=== PATIENT | male | born 1965 | race Caucasian/White ===

== ENCOUNTER 2016-11-30 22:32 | Inpatient (IN) | payer BC, OTHER ==
[~2016-11-30] VITALS: Ht 177.8 cm; Wt 163.0 kg
[~2016-11-30 22:32] MED LIST: LEVO.1 PO
[2016-11-30 22:35] VITALS: BP 134/61; PULSE 92; RESP 18; TEMP 103.2; O2SAT 95
[2016-11-30] MEDS ORDERED: SODIUM CHLOR 0.9% 1000 ML INJ 300 ML IV ONE (23:24)
[2016-11-30] MEDS ORDERED: SODIUM CHLOR 0.9% 1000 ML INJ 1,000 ML IV ONE ×3 (23:24)
[2016-11-30] MEDS ORDERED: ACETAMINOPHEN 325 MG TAB PO ONE (23:30)
[2016-11-30] MEDS ORDERED: PIPERACIL-TAZO 3.375 GM PREMIX 50 ML IV ONE (23:30)
[2016-11-30] MEDS ORDERED: VANCOMYCIN INJ 1,000 MG in SODIUM CHLOR 0.9% 250 ML INJ 250 ML IV ONE (23:30)
[2016-11-30] MEDS ORDERED: ONDANSETRON HCL 4 MG/2 ML VIAL IV ONE (23:30)
--- NOTE | 2016-11-30 23:55 | PD ---
HPI Chief Complaint: GI Complaint Time Seen by Provider: 23:22 Travel History International Travel<30 days: No Contact w/Intl Traveler<30days: No Traveled to known affect area: No History of Present Illness HPI The patient is a 51 year old male who presents to the [facility] emergency department with a history of beginning to feel ill on Wednesday with a cough and chest congestion. The patient reports that the cough was initially productive, however now it is dry. The patient reports he began to have fevers with generalized weakness. He went to a local [facility] on and had a flu test done that was negative, however in spite of this he was diagnosed with influenza and started on Tamiflu. The patient was also diagnosed with bronchitis and started on Augmentin. The patient reports that he continued to have fevers that are difficult to control in spite of using Tylenol every 4 hours. He reports that he's been experiencing nausea and then developed diarrhea on Wednesday. He reports that he's had approximately 5-6 episodes of diarrhea per day. He reports that the stool is brown in color. He reports that it is not controlled with Pepto-Bismol or Imodium. He denies having any vomiting. She reports that today he began to have urinary frequency and blood in his urine. He began went to the [facility] for evaluation and had a urinalysis done that did reveal blood in his urine. The patient and decided to come to the emergency department for evaluation and treatment. The patient arrives with a temperature of 104. The patient denies having any chest pain, chest pressure, or shortness of breath. He reports that when he has had diarrhea at times he does develop dizziness and diaphoresis while sitting on the toilet. The patient reports that his primary care physician is Dr. Benoit Mckinney. He last had blood work done 2 years ago. He reports that his only medical problem is a history of hypothyroid disorder. The patient denies any neck pain, abdominal pain, dysuria, or urinary urgency, or neurologic symptoms. [facility] Past Medical History Narrative Medical The patient's past medical history is significant for hypothyroid disorder. AAA: Yes Diminished Hearing: No Thyroid Disease: Yes Past Surgical History Narrative Surgical The patient denies any past surgical history. Social History Alcohol Use: No Tobacco Use: No Substance Use: No Allergies-Medications (Allergen,Severity, Reaction): Uncoded Allergies: PRESERVATIVE IN LIDOCAINE (Allergy, Severe, HIVES, 12/23/08) Reported Meds & Prescriptions Reported Meds & Active Scripts Active Reported Synthroid (Levothyroxine Sodium) 100 Mcg Tab 100 Mcg PO DAILY Review of Systems Except as stated in HPI: all other systems reviewed are Neg General / Constitutional: No: Fever Eyes: No: Visual changes HENT: Positive: Congestion, No: Headaches, Rhinorrhea, Neck Stiffness, Neck Pain Cardiovascular: No: Chest Pain or Discomfort, Dyspnea on exertion, Edema Respiratory: Positive: Cough, No: Shortness of Breath Gastrointestinal: Positive: Nausea, Diarrhea, Changes in Bowel Habits, Loss of Appetite, No: Vomiting, Abdominal Pain, Indigestion Genitourinary: Positive: Frequency, Hematuria, No: Urgency, Dysuria, Flank Pain Musculoskeletal: Positive: Myalgias, No: Pain Skin: No Rash Neurologic: Positive: Weakness (generalized weakness) Psychiatric: No: Depression Endocrine: Positive: Polyuria, Polydipsia Hematologic/Lymphatic: No: Easy Bruising Physical Exam Narrative General: The patient is a well-developed, obese male, uncomfortable appearing on my arrival to the room with a frequent dry sounding cough. Head and Neck exam: Head is normocephalic atraumatic. Eyes: EOMI, pupils are equal round and reactive to light. Nose: Midline septum with pink mucous membranes Mouth: Dentition unremarkable. Moist mucus membranes. Posterior oropharynx is not erythematous. No tonsillar hypertrophy. Uvula midline. Airway patent. Neck: No palpable lymphadenopathy. No nuchal rigidity. No thyromegaly. Cardiovascular: Sinus tachycardia in the low 100 without murmurs, gallops, or rubs. No pulse deficit to the extremities on simultaneous auscultation and palpation of his radial artery. Lungs: The patient has tachypnea with coarse breath sounds in bilateral bases. No wheezes or rhonchi. Abdomen: Soft, without tenderness to palpation in all 4 quadrants of the abdomen. No guarding, rebound, or rigidity. Normal bowel sounds are audible. No tenderness on palpation of McBurney's point. Extremities: No clubbing, cyanosis, or edema. 2+ pulses in all 4 extremities. Back: No spinous process tenderness to palpation. No costovertebral angle tenderness to palpation. Neurologic Exam: Cranial nerves 2-12 were intact on exam. Strength is 4/5 in all 4 extremities. No sensory deficits noted. Skin Exam: No rash noted. Intact skin that is warm and dry. Data Data Last Documented VS Vital Signs Date Time Temp Pulse Resp B/P Pulse Ox O2 Delivery O2 Flow Rate FiO2 11/30/16 23:30 22 11/30/16 22:35 103.2 92 134/61 95 Orders Electrocardiogram (11/30/16 23:24) Complete Blood Count With Diff (11/30/16 23:24) Comprehensive Metabolic Panel (11/30/16 23:24) Prothrombin Time / Inr (Pt) (11/30/16 23:24) Act Partial Throm Time (Ptt) (11/30/16 23:24) Lactic Acid Sepsis Protocol (11/30/16 23:24) Magnesium (Mg) (11/30/16 23:24) Lipase (11/30/16 23:24) Ckmb (Isoenzyme) Profile (11/30/16 23:24) Troponin I (11/30/16 23:24) Urinalysis - C+S If Indicated (11/30/16 23:24) Influenzae A/B Antigen (11/30/16 23:24) Blood Culture (11/30/16 23:24) Sputum Culture And Gram Stain (11/30/16 23:24) Chest, Single Ap (11/30/16 23:24) Blood Glucose (11/30/16 23:24) Ecg Monitoring (11/30/16 23:24) Iv Access Insert/Monitor (11/30/16 23:24) Oximetry (11/30/16 23:24) Oxygen Administration (11/30/16 23:24) Acetaminophen (Tylenol) (11/30/16 23:30) Sodium Chlor 0.9% 1000 Ml Inj (Ns 1000 M (11/30/16 23:24) Sodium Chlor 0.9% 1000 Ml Inj (Ns 1000 M (11/30/16 23:24) Sodium Chlor 0.9% 1000 Ml Inj (Ns 1000 M (11/30/16 23:24) Sodium Chlor 0.9% 1000 Ml Inj (Ns 1000 M (11/30/16 23:24) B-Type Natriuretic Peptide (11/30/16 23:24) C-Reactive Protein (Crp) (11/30/16 23:24) Ondansetron Inj (Zofran Inj) (11/30/16 23:30) Piperacil-Tazo 3.375 Gm Premix (Zosyn 3. (11/30/16 23:30) Vancomycin Inj (Vancomycin Inj) (11/30/16 23:30) Thyroid Stimulating Hormone (12/01/16 00:17) CKMB (11/30/16 23:40) CKMB% (11/30/16 23:40) Admit Order (Ed Use Only) (12/01/16 01:00) Labs Laboratory Tests Test 11/30/16 23:40 White Blood Count 7.3 TH/MM3 Red Blood Count 5.29 MIL/MM3 Hemoglobin 14.6 GM/DL Hematocrit 42.6 % Mean Corpuscular Volume 80.5 FL Mean Corpuscular Hemoglobin 27.6 PG Mean Corpuscular Hemoglobin 34.3 % Concent Red Cell Distribution Width 15.1 % Platelet Count 139 TH/MM3 Mean Platelet Volume 8.5 FL Neutrophils (%) (Auto) 77.3 % Lymphocytes (%) (Auto) 12.9 % Monocytes (%) (Auto) 9.5 % Eosinophils (%) (Auto) 0.0 % Basophils (%) (Auto) 0.3 % Neutrophils # (Auto) 5.6 TH/MM3 Lymphocytes # (Auto) 0.9 TH/MM3 Monocytes # (Auto) 0.7 TH/MM3 Eosinophils # (Auto) 0.0 TH/MM3 Basophils # (Auto) 0.0 TH/MM3 CBC Comment DIFF FINAL Differential Comment Prothrombin Time 11.3 SEC Prothromb Time International 1.0 RATIO Ratio Activated Partial 34.7 SEC Thromboplast Time Sodium Level 132 MEQ/L Potassium Level 4.3 MEQ/L Chloride Level 97 MEQ/L Carbon Dioxide Level 25.6 MEQ/L Anion Gap 9 MEQ/L Blood Urea Nitrogen 27 MG/DL Creatinine 1.65 MG/DL Estimat Glomerular Filtration 44 ML/MIN Rate Random Glucose 97 MG/DL Lactic Acid Level 1.2 mmol/L Calcium Level 8.1 MG/DL Magnesium Level 1.8 MG/DL Total Bilirubin 0.4 MG/DL Aspartate Amino Transf 136 U/L (AST/SGOT) Alanine Aminotransferase 55 U/L (ALT/SGPT) Alkaline Phosphatase 44 U/L Total Creatine Kinase 3776 U/L Creatine Kinase MB 2.6 NG/ML Creatine Kinase MB % 0.1 % Troponin I 0.08 NG/ML C-Reactive Protein 15.80 MG/DL B-Type Natriuretic Peptide 20 PG/ML Total Protein 7.4 GM/DL Albumin 3.1 GM/DL Lipase 319 U/L MDM Medical Decision Making Medical Screen Exam Complete: Yes Emergency Medical Condition: Yes Medical Record Reviewed: Yes Interpretation(s) Last Impressions Chest X-Ray 11/30/16 8004 Signed Impressions: Service Date/Time: Wednesday, November 30, 2016 23:39 - CONCLUSION: Basilar atelectasis or mild air space disease. Mynor Coleman MD Differential Diagnosis Sepsis, versus pyelonephritis, versus pneumonia, versus influenza, versus prostatitis, versus C. difficile colitis, versus gastroenteritis, versus dehydration, versus electrolyte abnormality, versus DKA Narrative Course During the course of the patients emergency department visit, the patients history, examination, and differential diagnosis were reviewed with the patient. The patient had IV access obtained and blood work sent for analysis. The patient was placed on a seismometer operator with oximetry and blood pressure monitoring. An ECG was ordered. The patient had an EKG done that reveals a sinus rhythm with frequent supraventricular premature contractions, heart rate of 96, QRS 102 ms, QTC 372 ms, no acute ST segment elevation is noted, T waves are inverted in V1. The patient was provided normal saline at 30 mL per KG IV fluid bolus due to meeting Sirs criteria with an infectious source that is suspected to be respiratory. The patient was started on vancomycin 1 g IV, Zosyn 3.37 g IV. The patient was given Zofran 4 mg IV, Tylenol 650 by mouth times one. An Accu- Chek was ordered. The patients laboratory studies were reviewed and remarkable for a white count of 7.3, hemoglobin 14.6, platelets 139 with neutrophils 77.3, monocytes 9.5. CMP is remarkable for sodium of 132, chloride 97, BUN 27, creatinine 1.65, GFR 44, lactic acid 1.2, calcium 8.1, magnesium 1.8, AST 136, alkaline phosphatase 44, CPK 3776, troponin I 0.08, C-reactive protein 15.80, CK-MB percent is normal , BNP is 20, lipase 319, PT PTT are unremarkable. Radiology studies were reviewed and remarkable for bilateral airspace disease at the bases. The patients results were discussed with the patient, including the plan of care. I explained that further testing and/ or monitoring is indicated based on the patients history, examination, and/ or laboratory findings. Therefore, I recommended admission for additional evaluation. The patient expressed understanding and was agreeable with this plan. The patient was admitted to the hospital in guarded condition and sent to a bed under the care of the [facility]. Critical Care Narrative Aggregate critical care time was 35 minutes. Time to perform other separately billable procedures was not included in the critical care time. My time did not include minutes spent treating any other patients simultaneously or on activities that did not directly contribute to the patient's treatment. The services I provided to this patient were to treat and/or prevent clinically significant deterioration that could result in: Respiratory failure, versus cardiovascular collapse I provided critical care services requiring my management, as noted below: Chart data review, documentation time, medication orders and management, vital sign assessments/reviewing monitor data, ordering and reviewing lab tests, ordering and interpreting/reviewing x-rays and diagnostic studies, care of the patient and discussion of the patient with the admitting physicians. Sepsis Criteria SIRS Criteria (2 or more): Temp > 100.9 or < 96.8, Heart rate over 90, RR > 20 or PaCO2 < 32 Sepsis Criteria (SIRS+source): Infect source susp/known Criteria Outcome: Meets SIRS criteria, Meets sepsis criteria Physician Communication Physician Communication The patient's case will be discussed with the [facility] regarding admission. The patient's case was discussed with Julian Quintana who did agree to admit the patient for further evaluation and treatment at this time. Diagnosis Primary Impression: Pneumonia Qualified Code: J18.9 - Pneumonia of both lower lobes due to infectious organism Additional Impressions: Rhabdomyolysis Qualified Code: M62.82 - Non-traumatic rhabdomyolysis Acute renal insufficiency Sepsis Qualified Code: A41.9 - Sepsis, due to unspecified organism Admitting Information Admitting Physician Requests: Admit Roseann Espinoza MD Nov 30, 2016 23:55
[2016-11-30 23:59] LABS: AUTOMATED NEUTROPHIL # 5.6 TH/MM3 (1.8-7.7); BASOPHIL % 0.3 % (0.0-2.0); HEMATOCRIT 42.6 % (39.0-51.0); HEMO FLAGS DIFF FINAL; LYMPH % 12.9 % (9.0-44.0); LYMPHOCYTE # 0.9 TH/MM3 (1.0-4.8); MEAN CELL VOLUME 80.5 FL (80.0-100.0); MEAN CORPUSCULAR HEMOGLOBIN 27.6 PG (27.0-34.0); MEAN CORPUSCULAR HGB CONC 34.3 % (32.0-36.0); MONO % 9.5 % (0.0-8.0); NEUT % 77.3 % (16.0-70.0); PLATELET COUNT 139 TH/MM3 (150-450); RED BLOOD COUNT 5.29 MIL/MM3 (4.50-5.90); RED CELL DISTRIBUTION WIDTH 15.1 % (11.6-17.2); WHITE BLOOD COUNT 7.3 TH/MM3 (4.0-11.0)
[2016-12-01] VITALS (11 sets, daily range): BP systolic 119–143; BP diastolic 63–72; PULSE 88–98; RESP 17–21; TEMP 100.6–103.3; O2SAT 94–98
--- NOTE | 2016-12-01 00:01 | RADRPT ---
EXAM DATE/TIME: 11/30/2016 23:39 [facility] COMPARISON: No previous studies available for comparison. INDICATIONS : Shortness of breath. MEDICAL HISTORY : None. SURGICAL HISTORY : None. ENCOUNTER: Initial ACUITY: 1 day PAIN SCORE: 0/10 LOCATION: Bilateral chest FINDINGS: There is cardiomegaly and patchy air space disease or atelectasis at the bases. No effusions. Osseous structures demonstrate degenerative changes of the spine. CONCLUSION: Basilar atelectasis or mild air space disease. Mynor Coleman MD on November 30, 2016 at 23:59 Board Certified Radiologist. This report was verified electronically.
[2016-12-01 00:06] LABS: APTT (PATIENT) 34.7 SEC (24.3-30.1); PROTHROMBIN TIME - PATIENT 11.3 SEC (9.8-11.6)
[2016-12-01 00:10] LABS: ANION GAP 9 MEQ/L (5-15); AST (GOT) 136 U/L (15-37); BICARBONATE 25.6 MEQ/L (21.0-32.0); BLOOD UREA NITROGEN 27 MG/DL (7-18); CHLORIDE 97 MEQ/L (98-107); GLOMERULAR FILTRATION RATE 44 ML/MIN (>89); MAGNESIUM 1.8 MG/DL (1.5-2.5); POTASSIUM 4.3 MEQ/L (3.5-5.1); SODIUM (NA) 132 MEQ/L (136-145)
[2016-12-01 00:26] LABS: ALKALINE PHOSPHATASE 44 U/L (45-117); ALT (GPT) 55 U/L (12-78); CREATINE KINASE 3776 U/L (39-308); TOTAL BILIRUBIN ADULT 0.4 MG/DL (0.2-1.0)
[2016-12-01 00:39] LABS: CKMB 2.6 NG/ML (0.5-3.6)
[2016-12-01] MEDS ORDERED: LEVO.1 PO (01:24)
[2016-12-01] MEDS ORDERED: SODIUM CHLORIDE 0.9% FLUSH 5 ML FLUSH IV FLUSH PRN (01:45)
[2016-12-01] MEDS ORDERED: RESP: ALBUTEROL 2.5 MG/IPRATROPIUM 0.5 MG NEB (PRN) INH (01:45)
[2016-12-01] MEDS ORDERED: ONDANSETRON HCL 4 MG/2 ML VIAL IV PRN (01:45)
[2016-12-01] MEDS: SODIUM CHLOR 0.9% 1000 ML INJ 1,000 ML IV SCH ×3 (03:06→12:07)
[2016-12-01] MEDS: HEPARIN SODIUM - SQ 10,000 UNITS/ML VIAL SQ SCH ×2 (03:06→13:38)
[2016-12-01] MEDS: cefTRIAXone INJ 1,000 MG in SODIUM CHLORIDE 0.9% INJ 100 ML IV SCH (03:07)
[2016-12-01 03:35] LABS: BACTERIA, URINE RARE /hpf; BLOOD, URINE MOD (NEG); GLUCOSE,URINE NEG (NEG); GRANULAR CAST, URINE 4 /lpf; HYALINE CAST, URINE 8 /lpf (RARE); KETONE, URINE 10 mg/dL (NEG); MUCUS URINE FEW /lpf (OCC); NITRITE,URINE NEG (NEG); PH, URINE 5.5 (5.0-8.5); SQUAMOUS EPITHELIAL CELL URINE 1 /hpf (0-5); URINE COLOR YELLOW (YELLW/STRAW)
[2016-12-01 03:42] LABS: COMMENT (UR) CATH-CULTURE IND; CULTURE IF INDICATED CATH CULTURE IND
[2016-12-01] MEDS: AZITHROMYCIN INJ 500 MG in SODIUM CHLOR 0.9% 250 ML INJ 250 ML IV SCH (03:57)
--- NOTE | 2016-12-01 05:54 | MH ---
cc: VALENTIN MARIN DATE OF ADMISSION: 12/01/2016 PRIMARY CARE PHYSICIAN Beniot Mckinney MD CHIEF COMPLAINT Cough and fever. HISTORY OF PRESENT ILLNESS This is a pleasant 51-year-old male who has been sick since last Wednesday. The patient states he developed a cough and a fever. He notes going a central care. He was started on Tamiflu, though his flu test was reported to be negative. He was also started on Augmentin; this was on . By Wednesday he developed diarrhea having 5-6 bowel movement per day. He started taking Imodium and some Pepto Bismol. The stool turned a little bit dark with the Pepto Bismol. He was still having the diarrhea. His cough was initially moist and productive; it has become more of a dry cough. He has been using [id number] Mucinex DX for this and he has been taking Tylenol for the fever. He still continues to have fever. He is denying chest pain or shortness of breath. He is denying abdominal pain. He has not seen blood in his stool. He has finished his Tamiflu. He is up-to-date on his Augmentin as well. His appetite has become poor as he is trying to avoid the diarrhea. Denies any other specific recent changes. MEDICATIONS ON ADMISSION Synthroid 0.1 daily. ALLERGIES LIDOCAINE. PAST MEDICAL HISTORY Hypothyroidism. Obesity. PAST SURGICAL HISTORY None. SOCIAL HISTORY . Tobacco none. Alcohol use none. Substance abuse none. He works in a warehouse. FAMILY HISTORY Mother and father alive and well. REVIEW OF SYSTEMS A 10 point review of systems gone over with the patient. Prior to five days ago, he has been in his normal state of health. He does snore. He has never been tested for sleep apnea, though his indicates he does not stop breathing. On review of systems otherwise no pertinent findings. PHYSICAL EXAMINATION Vital Sign: The patient has a T-max of 103.2, pulse 92, respirations 18, blood pressure 134/61. O2 sat is 95% on room air. General: This was a 51-year-old male resting comfortably in bed. He is in no acute distress. HEENT: Mucous membranes are moist. There is no jaundice. Neck: Supple. Cardiovascular System: Regular rate and rhythm. Respiratory System: Coarse bibasilar breath sounds. Gastrointestinal System: Morbidly obese. No point tenderness, guarding or rebound. System: No suprapubic tenderness, no CVA tenderness. Musculoskeletal System: No edema. Bartolome's negative. Distal pulses are palpable. Neurological Exam: The patient is awake, alert, oriented x 4. Speech is clear and fluent. He is moving all extremities freely. INVESTIGATIONS Chest x-ray shows bibasilar atelectasis, some mild airspace disease. CBC shows a platelet count of 139, otherwise normal. Sodium is 132, potassium is 4.3, BUN is 27, creatinine is 1.65, calcium is 8.1, magnesium is 1.8, AST is 136, ALT is 55, alkaline phosphatase is 44. CPK is 3776. CKMB was normal. Troponin is 0.08. C-reactive protein 15.8. BUN is 3.1. Lipase is 319. INR is 1. IMPRESSION 1. Bibasilar pneumonia. 2. Sepsis on admission. 3. Thrombocytopenia. 4. Acute kidney injury. 5. Hyponatremia. 6. Rhabdomyolysis. 7. Elevated troponin. 8. Elevated liver enzymes. 9. Morbid obesity. DISCUSSION The patient is admitted to Dr. Marin's service. The patient meets inpatient criteria due to the severity of his rhabdomyolysis and pneumonia with failed outpatient therapy without which hospitalization he would be at high risk in going into septic shock, multisystem organ failure, etc. During his hospital stay he will be monitored on telemetry. He will be started on DVT prophylaxis. He will be started on low-dose aspirin. We will repeat a troponin and EKG in the morning. He has received 3 liters of fluid in the emergency room. We will continue IV fluid. We will follow up a CPK in the morning as well. IV antibiotics will be given. Electrolytes will be monitored and replaced as needed. It should also be noted that his lactic acid was 1.2. He is having diarrhea; this is likely from the Augmentin. We will check him for C-diff and if positive we will proceed with the standard treatment. If negative, we will proceed with antidiarrheals as needed. We will also provide the patient with nebulizers as needed, cough medicine, Tylenol, Zofran and incentive spirometry. Estimated length of stay is 3-4 days. Anticipated discharge is home. 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
[2016-12-01] MEDS: ACETAMINOPHEN 325 MG TAB PO PRN ×4 (07:30→20:50)
[2016-12-01 08:27] LABS: BICARBONATE 18.8 MEQ/L (21.0-32.0); MAGNESIUM 1.7 MG/DL (1.5-2.5); POTASSIUM 3.9 MEQ/L (3.5-5.1)
[2016-12-01 08:43] LABS: CALCIUM-PROTEIN CORRECTED 7.6 MG/DL (8.5-10.1)
[2016-12-01 09:04] LABS: CKMB 6.3 NG/ML (0.5-3.6)
[2016-12-01] MEDS: LEVOTHYROXINE SODIUM 100 MCG TAB PO SCH (09:47)
[2016-12-01] MEDS: SODIUM CHLORIDE 0.9% FLUSH 5 ML FLUSH IV FLUSH SCH ×2 (09:47→20:26)
[2016-12-01] MEDS: ASPIRIN EC 81 MG TABEC PO SCH (09:47)
[2016-12-01 12:01] LABS: C. DIFF EPI 027 PRESUMPTIVE NEGATIVE (NEGATIVE); C. DIFF TOXIN PCR NEGATIVE (NEGATIVE)
--- NOTE | 2016-12-01 17:10 | EKG ---
Date Performed: 12/01/2016 Time Performed: 00:09:20 PTAGE: 51 years EKG: Sinus rhythm WITH FREQUENT SUPRAVENTRICULAR PREMATURE COMPLEXES INDETERMINATE AXIS ABNORMAL RHYTHM ECG NO PREVIOUS TRACING DOCTOR: Agapito Tolbert Interpretating Date/Time 12/01/2016 17:05:35
[2016-12-01] MEDS: guaiFENesin/DEXTROMETHORPHAN 200 MG/20 MG/10 ML CUP PO PRN (20:53)
[2016-12-01] MEDS: LOPERAMIDE HCL 2 MG CAP PO PRN (21:45)
[2016-12-02] VITALS (10 sets, daily range): BP systolic 100–140; BP diastolic 50–74; PULSE 64–96; RESP 16–22; TEMP 98.2–102.9; O2SAT 89–96
[2016-12-02] MEDS: guaiFENesin/DEXTROMETHORPHAN 200 MG/20 MG/10 ML CUP PO PRN ×5 (00:46→22:17)
[2016-12-02] MEDS: SODIUM CHLOR 0.9% 1000 ML INJ 1,000 ML IV SCH ×3 (00:46→17:32)
[2016-12-02] MEDS: ACETAMINOPHEN 325 MG TAB PO PRN ×5 (00:46→16:47)
[2016-12-02] MEDS: cefTRIAXone INJ 1,000 MG in SODIUM CHLORIDE 0.9% INJ 100 ML IV SCH (02:01)
[2016-12-02] MEDS: HEPARIN SODIUM - SQ 10,000 UNITS/ML VIAL SQ SCH ×2 (02:01→13:13)
[2016-12-02] MEDS: AZITHROMYCIN INJ 500 MG in SODIUM CHLOR 0.9% 250 ML INJ 250 ML IV SCH (03:12)
[2016-12-02] MEDS: LOPERAMIDE HCL 2 MG CAP PO PRN (05:10)
[2016-12-02] MEDS: LEVOTHYROXINE SODIUM 100 MCG TAB PO SCH (05:12)
[2016-12-02] MEDS: ASPIRIN EC 81 MG TABEC PO SCH (08:09)
[2016-12-02] MEDS: SODIUM CHLORIDE 0.9% FLUSH 5 ML FLUSH IV FLUSH SCH ×2 (08:09→21:00)
[2016-12-02] MEDS ORDERED: IBUPROFEN 800 MG TAB PO PRN ×2 (10:15→18:00)
--- NOTE | 2016-12-02 10:52 | HHI.PR ---
Subjective Remarks Patient is feeling tired Still having cough Now urinalysis just dark yellow. No more blood. No other associated symptoms No abdominal pain No diarrhea No chest pain Review of system for 12 point system otherwise unremarkable Objective Objective Results - Vital Signs Date Time Temp Pulse Resp B/P Pulse Ox O2 Delivery O2 Flow Rate FiO2 12/02/16 08:00 102.2 92 20 106/62 95 12/02/16 04:00 102.6 96 18 119/61 94 12/02/16 00:00 102.9 93 20 140/74 94 12/01/16 20:00 102.7 96 20 119/67 94 12/01/16 19:59 97 12/01/16 16:00 103.3 91 17 143/70 95 12/01/16 13:32 102.0 12/01/16 11:58 101.9 88 18 123/63 97 Room Air I/O 12/01/16 12/01/16 12/01/16 12/02/16 12/02/16 12/02/16 07:00 15:00 23:00 07:00 15:00 23:00 Intake Total 16 ml 350 ml 631 ml 1299 ml 120 ml Output Total 300 ml Balance 16 ml 350 ml 331 ml 1299 ml 120 ml Intake Oral 16 ml 350 ml 240 ml 240 ml 120 ml IV Total 391 ml 1059 ml Output Urine Total 300 ml # Voids 1 2 # Bowel Movements 1 0 0 Result Diagram: 11/30/16 2340 12/01/16 0749 Other Results Date/Time Procedure Status Source Growth 12/01/16 02:55 Urine Culture Received Urine Catheterized Urine Pending 12/01/16 01:55 Gram Stain - Final Resulted Sputum Expectorated Sputum 12/01/16 01:55 Sputum Culture Resulted Sputum Expectorated Sputum Pending 11/30/16 23:40 Aerobic Blood Culture - Preliminary Resulted Blood Peripheral NO GROWTH IN 1 DAY 11/30/16 23:40 Anaerobic Blood Culture - Preliminary Resulted Blood Peripheral NO GROWTH IN 1 DAY 11/30/16 09:30 Influenza Types A,B Antigen (MARIIA) - Final Complete Nasal Aspirate NEGATIVE FOR FLU A AND B ANTIGEN.... Physical Exam Physical Exam Vital Sign: Reviewed General: This was a 51-year-old male resting comfortably in bed. He is in no acute distress. HEENT: Mucous membranes are moist. There is no jaundice. Neck: Supple. No lymphadenopathy no increased JVD Cardiovascular System: Regular rate and rhythm. Respiratory System: Coarse bibasilar breath sounds. With occasional rhonchi. Gastrointestinal System: Morbidly obese. No point tenderness, guarding or rebound. System: No suprapubic tenderness, no CVA tenderness. Musculoskeletal System: No edema. Bartolome's negative. Distal pulses are palpable. Neurological Exam: The patient is awake, alert, oriented x 4. Speech is clear and fluent. He is moving all extremities freely. A/P Assessment and Plan 1. Bibasilar pneumonia. 2. Sepsis on admission. 3. Thrombocytopenia. 4. Acute kidney injury. 5. Hyponatremia. 6. Rhabdomyolysis. 7. Elevated troponin. 8. Elevated liver enzymes. 9. Morbid obesity. DISCUSSION monitored on telemetry. Will start cefepime and continue Zithromax. DC Rocephin ID consult Motrin for fever and pain and continue Tylenol Continue cooling blanket on as-needed basis Continue IV fluids Monitor labs today's labs pending Continue heparin for DVT prophylaxis Will add Protonix for GI prophylaxis He will be started Slight increase troponin no chest pain or associated symptoms likely secondary to pneumonia and sepsis. C. difficile negative continue Imodium on when necessary basis It should also be noted that his lactic acid was 1.2. He is having diarrhea; Zofran when necessary basis for nausea and vomiting incentive spirometry encouraged Discussed with RN Discussed with patient and at bedside in detail Condition guarded Marybeth Marin MD Dec 02, 2016 10:52
[2016-12-02] MEDS: CEFEPIME INJ 2,000 MG in SODIUM CHLORIDE 0.9% INJ 100 ML IV SCH ×2 (11:59→22:18)
[2016-12-02 12:34] LABS: HEMATOCRIT 35.4 % (39.0-51.0); MEAN CELL VOLUME 81.7 FL (80.0-100.0); MEAN CORPUSCULAR HEMOGLOBIN 27.6 PG (27.0-34.0); MEAN CORPUSCULAR HGB CONC 33.7 % (32.0-36.0); PLATELET COUNT 152 TH/MM3 (150-450); RED BLOOD COUNT 4.33 MIL/MM3 (4.50-5.90); RED CELL DISTRIBUTION WIDTH 15.2 % (11.6-17.2); REVIEW FLAG FINAL
[2016-12-02 13:52] LABS: BICARBONATE 22.7 MEQ/L (21.0-32.0); MAGNESIUM 1.8 MG/DL (1.5-2.5); POTASSIUM 3.7 MEQ/L (3.5-5.1)
--- NOTE | 2016-12-02 16:07 | PD.CONS ---
History of Present Illness Service Infectious disease Consult Requested By Dr Roge Marin Reason for Consult Evaluate patient with fever Primary Care Physician Lori Mckinney MD Diagnoses: History of Present Illness Patient seen and examined. Records reviewed. Patient is a 51-year-old male, presented to the hospital for further evaluation of persistent fever, cough. His problems started about 6 days prior to admission when he started having flulike symptoms. He described this as fever, chills, body aches, and dry cough. He went to an urgent care center the following day, and he was diagnosed to have the flu, and bronchitis. He was given Tamiflu, and Augmentin, as well as cough medication. Symptoms continued, and he was coughing quite a bit and not bringing up any phlegm. He started having some discomfort in his right shoulder and abdomen due to the persistent coughing. He continued to have the fever and chills. About 2 days prior to admission he started having diarrhea. On the day of admission they went back to the urgent care center, and from there the patient was advised to go to the hospital for further evaluation and treatment. One of the child has had respiratory symptoms but has improved. No recent travel. No exposure to any other sick person in his job. No birds in the house. Since admission patient has had fevers up to 103. His WBC is normal. Chest x-ray has some basilar infiltrates. Urinalysis unremarkable. Blood cultures are negative. Influenza testing is negative. Of note is that patient has had elevated CPK. Infectious disease consultation has been requested to evaluate the patient. Review of Systems Constitutional: COMPLAINS OF: Diaphoretic episodes, Fever, Chills, Change in appetite Eyes: DENIES: Eye pain Ears, nose, mouth, throat: COMPLAINS OF: Nasal discharge, DENIES: Throat pain , Hoarseness, Ear Pain, Running Nose, Sinus Pain, Odynophagia Respiratory: COMPLAINS OF: Cough, DENIES: Sputum production, Shortness of breath Cardiovascular: COMPLAINS OF: Chest pain, DENIES: Palpitations, Syncope Gastrointestinal: COMPLAINS OF: Abdominal pain, Diarrhea, DENIES: Nausea, Vomiting Genitourinary: DENIES: Urgency, Dysuria, Nocturia Musculoskeletal: COMPLAINS OF: Joint pain, Muscle aches, DENIES: Joint Swelling Integumentary: DENIES: Rash Immunologic/allergic: DENIES: Urticaria Neurologic: DENIES: Headache Psychiatric: DENIES: Anxiety, Confusion Past Family Social History Allergies: Uncoded Allergies: PRESERVATIVE IN LIDOCAINE (Allergy, Severe, HIVES, 12/23/08) Past Medical History Hypothyroidism Obesity Past Surgical History None Active Ordered Medications Tylenol Albuterol Aspirin Azithromycin Cefepime Robitussin-DM Heparin Ibuprofen Synthroid Imodium Zofran Social History Works in a warehouse Denies smoking Denies alcohol abuse Denies drug use Physical Exam Vital Signs Vital Signs Date Time Temp Pulse Resp B/P Pulse Ox O2 Delivery O2 Flow Rate FiO2 12/02/16 13:47 89 21 12/02/16 12:00 99.7 77 22 107/61 92 12/02/16 10:14 18 12/02/16 08:00 102.2 92 20 106/62 95 12/02/16 04:00 102.6 96 18 119/61 94 12/02/16 00:00 102.9 93 20 140/74 94 12/01/16 20:00 102.7 96 20 119/67 94 12/01/16 19:59 97 Physical Exam GENERAL: This is an obese, well-developed male, awake and alert, looks dyspneic when he is talking, although she denies shortness of breath. SKIN: Cool and moist. No generalized rash or ecchymosis. HEAD: Atraumatic. Normocephalic. No temporal or scalp tenderness. EYES: [place] conjunctivae, no petechia or hemorrhage. Pupils equal round and reactive. Extraocular motions intact. No scleral icterus. No injection or drainage. ENT: Nose without bleeding, or purulent drainage. Moist oral mucosa, no thrush noted. Throat without erythema, or exudate. Uvula midline. Airway patent. NECK: Trachea midline. No JVD or lymphadenopathy. Supple, nontender, no meningeal signs. CARDIOVASCULAR: Regular rate and rhythm without murmurs, gallops, or rubs. Soft heart sounds. RESPIRATORY: Clear to auscultation. Breath sounds equal bilaterally. No wheezes , rales, or rhonchi. Decreased breath sounds at the bases. GASTROINTESTINAL: Abdomen soft, obese, non-tender, nondistended. Bowel sounds are present in normoactive. Limited exam for presence of organomegaly due to the size of his abdomen. No guarding. MUSCULOSKELETAL: Extremities without clubbing, cyanosis, or edema. No joint effusion, or edema noted. No calf tenderness. IV sites look okay with no evidence of infection NEUROLOGICAL: Awake and alert. Cranial nerves II through XII intact. Motor and sensory grossly within normal limits. Five out of 5 muscle strength in all muscle groups. Normal speech. PSYCH: Calm and cooperative LINE: PIV with no evidence of infection Laboratory Laboratory Tests Test 12/02/16 12:20 White Blood Count 11.0 Red Blood Count 4.33 Hemoglobin 11.9 Hematocrit 35.4 Mean Corpuscular Volume 81.7 Mean Corpuscular Hemoglobin 27.6 Mean Corpuscular Hemoglobin 33.7 Concent Red Cell Distribution Width 15.2 Platelet Count 152 Mean Platelet Volume 7.7 Sodium Level 137 Potassium Level 3.7 Chloride Level 105 Carbon Dioxide Level 22.7 Anion Gap 9 Blood Urea Nitrogen 12 Creatinine 1.14 Estimat Glomerular Filtration 67 Rate Random Glucose 114 Calcium Level 7.3 Magnesium Level 1.8 Total Creatine Kinase 5086 Troponin I 0.12 Date/Time Procedure Status Source Growth 12/01/16 02:55 Urine Culture - Preliminary Resulted Urine Catheterized Urine NO GROWTH IN 24 HOURS. 12/01/16 01:55 Gram Stain - Final Resulted Sputum Expectorated Sputum 12/01/16 01:55 Sputum Culture - Preliminary Resulted Sputum Expectorated Sputum HEAVY GROWTH NORMAL RESPIRATORY KRISTIAN... 11/30/16 23:40 Aerobic Blood Culture - Preliminary Resulted Blood Peripheral NO GROWTH IN 2 DAYS 11/30/16 23:40 Anaerobic Blood Culture - Preliminary Resulted Blood Peripheral NO GROWTH IN 2 DAYS 11/30/16 09:30 Influenza Types A,B Antigen (MARIIA) - Final Complete Nasal Aspirate NEGATIVE FOR FLU A AND B ANTIGEN.... Result Diagram: 12/02/16 1220 12/02/16 1220 Imaging RADIOLOGY STUDIES/FILMS REVIEWED Chest X-Ray 11/30/16 8934 Signed Impressions: Service Date/Time: Wednesday, November 30, 2016 23:39 - CONCLUSION: Basilar atelectasis or mild air space disease. Mynor Coleman MD Assessment and Plan Assessment and Plan IMPRESSION Sepsis on admission due to pulmonary source Likely with pneumonia, ?baterial, ?atypical or viral Elevated CPK, ?due to cause of his PNA, viral Obesity, high risk for KERRY Looks dyspneic but denies SOB RECOMMENDATION Repeat BC with next fever Urine for legionella and pneumo Ag ESR CRP CT chest to evaluate cough and pain R shoulder Atypical serologies Resp viral panel Continue Zithromax and Cefepime Add Levaquin Follow C/S Monitor temps Monitor progress I will determine course of Abx depending on work-up and clinical course I will follow along with you Thank you for this consultation Discussed Condition With Explained plan to patient and Evon Reno MD Dec 02, 2016 16:07
[2016-12-02] MEDS: LEVOFLOXACIN 750 MG TAB PO SCH (16:45)
[2016-12-02 17:00] LABS: CALCIUM-PROTEIN CORRECTED 7.8 MG/DL (8.5-10.1); CKMB 8.2 NG/ML (0.5-3.6)
[2016-12-02] MEDS ORDERED: IOHEXOL 350 MG/ML 10 ML VIAL (for RAD DIAG) IV ONE (21:23)
--- NOTE | 2016-12-02 21:41 | RADRPT ---
EXAM DATE/TIME: 12/02/2016 21:11 [facility] COMPARISON: No previous studies available for comparison. INDICATIONS : Cough and fever. IV CONTRAST: 67 cc Omnipaque 350 (iohexol) IV RADIATION DOSE: 15.44 CTDIvol (mGy) MEDICAL HISTORY : Aneurysm, abdominal. SURGICAL HISTORY : None. ENCOUNTER: Initial ACUITY: 1 day PAIN SCALE: 4/10 LOCATION: chest TECHNIQUE: Volumetric scanning of the chest was performed. Using automated exposure control and adjustment of t he mA and/or kV according to patient size, radiation dose was kept as low as reasonably achievable to obtain optimal diagnostic quality images. FINDINGS: There is dense consolidation in the right upper lobe and right middle lobe and some patchy airspace d isease in the right lower lobe characteristic of bronchopneumonia. There is a small right-sided parap neumonic effusion with right basilar atelectasis. The left lung is clear. Several borderline enlarged mediastinal lymph nodes are present. No pericardial effusion. No acute findings in the upper abdomen . No acute bony abnormalities. CONCLUSION: 1. Dense consolidation in the right upper lobe and right middle lobe with patchy airspace disease at the right lung base and small right effusion. Findings are most characteristic of bronchopneumonia wi th parapneumonic effusion. Omar Ramesh MD on December 02, 2016 at 21:37 Board Certified Radiologist. This report was verified electronically.
[2016-12-03] MEDS ORDERED: ACETAMINOPHEN/HYDROcodone 325 MG/7.5 MG TAB PO ONE (01:30)
[2016-12-03] MEDS: HEPARIN SODIUM - SQ 10,000 UNITS/ML VIAL SQ SCH ×2 (01:58→13:16)
[2016-12-03] MEDS: SODIUM CHLOR 0.9% 1000 ML INJ 1,000 ML IV SCH ×2 (01:59→08:23)
[2016-12-03] MEDS: AZITHROMYCIN INJ 500 MG in SODIUM CHLOR 0.9% 250 ML INJ 250 ML IV SCH (03:30)
[2016-12-03 04:56] LABS: HEMATOCRIT 36.5 % (39.0-51.0); MEAN CELL VOLUME 82.3 FL (80.0-100.0); MEAN CORPUSCULAR HEMOGLOBIN 27.1 PG (27.0-34.0); MEAN CORPUSCULAR HGB CONC 32.9 % (32.0-36.0); PLATELET COUNT 181 TH/MM3 (150-450); RED BLOOD COUNT 4.43 MIL/MM3 (4.50-5.90); RED CELL DISTRIBUTION WIDTH 15.2 % (11.6-17.2); REVIEW FLAG FINAL; WHITE BLOOD COUNT 8.4 TH/MM3 (4.0-11.0)
[2016-12-03 05:17] LABS: POTASSIUM 3.7 MEQ/L (3.5-5.1)
[2016-12-03] MEDS: LEVOTHYROXINE SODIUM 100 MCG TAB PO SCH (05:26)
[2016-12-03] MEDS: CEFEPIME INJ 2,000 MG in SODIUM CHLORIDE 0.9% INJ 100 ML IV SCH ×3 (05:26→23:21)
[2016-12-03 05:45] LABS: CKMB 10.7 NG/ML (0.5-3.6)
[2016-12-03 08:00] VITALS: BP 129/79; PULSE 77; RESP 24; TEMP 97.6; O2SAT 93
[2016-12-03] MEDS: SODIUM CHLORIDE 0.9% FLUSH 5 ML FLUSH IV FLUSH SCH ×2 (08:23→23:20)
[2016-12-03] MEDS: ASPIRIN EC 81 MG TABEC PO SCH (08:23)
--- NOTE | 2016-12-03 09:17 | RADRPT ---
EXAM DATE/TIME: 12/03/2016 08:04 [facility] COMPARISON: CT THORAX W CONTRAST, December 02, 2016, 21:11. CHEST SINGLE AP, November 30, 2016, 23:39. INDICATIONS : Short of breath, follow up right pneumonia. MEDICAL HISTORY : None. SURGICAL HISTORY : None. ENCOUNTER: Initial ACUITY: 1 week PAIN SCORE: 0/10 LOCATION: Bilateral chest FINDINGS: PA and lateral views of the chest were obtained and again demonstrate consolidative infiltrate in the right lung base. This is increased from the prior chest plain film examination this does not appear slightly changed from the chest CT. The left lung is clear. The study is Midinspiratory chronic lung vasculature. The heart size is at the upper limits normal. There is blunting of the right costophreni c angle consistent with the known small effusion. CONCLUSION: 1. Consolidative infiltrate in the right lung base consistent with the known pneumonia. 2. Small right effusion. Topher Aponte MD on December 03, 2016 at 9:14 Board Certified Radiologist. This report was verified electronically.
--- NOTE | 2016-12-03 10:44 | HHI.PR ---
Subjective Remarks Patient is feeling better than yesterday Sitting on bed Still having cough dry Now urinalysis just dark yellow. No more blood. No other associated symptoms No diarrhea No chest pain Review of system for 12 point system otherwise unremarkable Objective Objective Results - Vital Signs Date Time Temp Pulse Resp B/P Pulse Ox O2 Delivery O2 Flow Rate FiO2 12/03/16 08:00 97.6 77 24 129/79 93 12/03/16 02:59 20 12/02/16 23:58 99.0 76 20 100/50 96 12/02/16 20:42 77 12/02/16 20:00 98.6 64 20 118/65 95 12/02/16 18:50 Nasal Cannula 2.00 12/02/16 16:00 98.2 77 16 118/67 95 12/02/16 15:00 77 12/02/16 14:15 18 12/02/16 13:47 89 21 12/02/16 12:00 99.7 77 22 107/61 92 I/O 12/02/16 12/02/16 12/02/16 12/03/16 12/03/16 12/03/16 07:00 15:00 23:00 07:00 15:00 23:00 Intake Total 1299 ml 2044 ml 979 ml 1473 ml Output Total 800 ml Balance 1299 ml 1244 ml 979 ml 1473 ml Intake Oral 240 ml 740 ml 360 ml 360 ml IV Total 1059 ml 1304 ml 619 ml 1113 ml Output Urine Total 800 ml # Voids 2 2 2 # Bowel Movements 0 0 0 0 Result Diagram: 12/03/16 0435 12/03/16 0435 Other Results Laboratory Tests Test 12/02/16 12/03/16 12:20 04:35 White Blood Count 11.0 8.4 Red Blood Count 4.33 4.43 Hemoglobin 11.9 12.0 Hematocrit 35.4 36.5 Mean Corpuscular Volume 81.7 82.3 Mean Corpuscular Hemoglobin 27.6 27.1 Mean Corpuscular Hemoglobin 33.7 32.9 Concent Red Cell Distribution Width 15.2 15.2 Platelet Count 152 181 Mean Platelet Volume 7.7 7.8 Sodium Level 137 139 Potassium Level 3.7 3.7 Chloride Level 105 107 Carbon Dioxide Level 22.7 23.0 Anion Gap 9 9 Blood Urea Nitrogen 12 13 Creatinine 1.14 0.94 Estimat Glomerular Filtration 67 84 Rate Random Glucose 114 153 Calcium Level 7.3 7.7 Protein Corrected Calcium 7.8 Magnesium Level 1.8 2.0 Total Creatine Kinase 5086 4054 Creatine Kinase MB 8.2 10.7 Creatine Kinase MB % 0.2 0.3 Troponin I 0.12 Total Protein 6.2 Erythrocyte Sedimentation Rate 51 Phosphorus Level 1.2 C-Reactive Protein 18.20 Date/Time Procedure Status Source Growth 12/01/16 02:55 Urine Culture - Final Complete Urine Catheterized Urine NO GROWTH IN 48 HOURS. 12/01/16 01:55 Gram Stain - Final Complete Sputum Expectorated Sputum 12/01/16 01:55 Sputum Culture - Final Complete Sputum Expectorated Sputum HEAVY GROWTH NORMAL RESPIRATORY KRISTIAN 11/30/16 23:40 Aerobic Blood Culture - Preliminary Resulted Blood Peripheral NO GROWTH IN 2 DAYS 11/30/16 23:40 Anaerobic Blood Culture - Preliminary Resulted Blood Peripheral NO GROWTH IN 2 DAYS 11/30/16 09:30 Influenza Types A,B Antigen (MARIIA) - Final Complete Nasal Aspirate NEGATIVE FOR FLU A AND B ANTIGEN.... Physical Exam Physical Exam Vital Sign: Reviewed General: This was a 51-year-old male resting comfortably in bed. He is in no acute distress. HEENT: Mucous membranes are moist. There is no jaundice. Neck: Supple. No lymphadenopathy no increased JVD Cardiovascular System: Regular rate and rhythm. Respiratory System: Coarse bibasilar breath sounds. With occasional rhonchi. Gastrointestinal System: Morbid obese. No tenderness, guarding or rebound. System: No suprapubic tenderness, no CVA tenderness. Musculoskeletal System: No edema. Bartolome's negative. Distal pulses are palpable. Neurological Exam: The patient is awake, alert, oriented x 4. Speech is clear and fluent. He is moving all extremities freely. A/P Assessment and Plan 1. Bibasilar pneumonia. 2. Sepsis on admission. 3. Thrombocytopenia. 4. Acute kidney injury. 5. Hyponatremia. 6. Rhabdomyolysis. 7. Elevated troponin. 8. Elevated liver enzymes. 9. Morbid obesity. DISCUSSION monitored on telemetry. On cefepime and Zithromax and Levaquin ID consult appreciated Resolved fever Continue cooling blanket on as-needed basis Continue IV fluids will decrease rate as blood pressure is stable Reviewed labs Stable H&H Increase sedimentation rate Low phosphorous will replace Increased CRP Urine culture shows no growth 48 hours Sputum culture showing heavy growth normal respiratory Kristian Continue heparin for DVT prophylaxis Will add Protonix for GI prophylaxis Slight increase troponin no chest pain or associated symptoms likely secondary to pneumonia and sepsis. C. difficile negative continue Imodium on when necessary basis Zofran when necessary basis for nausea and vomiting incentive spirometry encouraged Discussed with RN Discussed with patient and at bedside in detail. Counseled about losing weight Discussed with RN Marybeth Marin MD Dec 03, 2016 10:44
[2016-12-03] MEDS: guaiFENesin/DEXTROMETHORPHAN 200 MG/20 MG/10 ML CUP PO PRN ×3 (11:50→23:28)
[2016-12-03 12:00] VITALS: BP 125/72; PULSE 82; RESP 24; TEMP 96.8; O2SAT 96
[2016-12-03 12:03] VITALS: O2SAT 93
--- NOTE | 2016-12-03 12:13 | HHI.IDPN ---
Subjective Subjective Remarks Notes reviewed Temps better C/O upper back pain when he cough as well as abdominal pain Not bringing up a lot of phlegm One loose stool today CT of chest with multilobar R PNA and small R effusion C/S reviewed Antibiotics Cefepime Levaquin Zithromax Lines PIV Past Medical History Hypothyroidism Obesity Allergies: Uncoded Allergies: PRESERVATIVE IN LIDOCAINE (Allergy, Severe, HIVES, 12/23/08) Objective . Vital Signs Date Time Temp Pulse Resp B/P Pulse Ox O2 Delivery O2 Flow Rate FiO2 12/03/16 12:03 93 Nasal Cannula 2.00 12/03/16 08:00 97.6 77 24 129/79 93 12/03/16 02:59 20 12/02/16 23:58 99.0 76 20 100/50 96 12/02/16 20:42 77 12/02/16 20:00 98.6 64 20 118/65 95 12/02/16 18:50 Nasal Cannula 2.00 12/02/16 16:00 98.2 77 16 118/67 95 12/02/16 15:00 77 12/02/16 14:15 18 12/02/16 13:47 89 21 12/02/16 12/02/16 12/03/16 15:00 23:00 07:00 Intake Total 2044 ml 979 ml 1473 ml Output Total 800 ml Balance 1244 ml 979 ml 1473 ml Intake Oral 740 ml 360 ml 360 ml IV Total 1304 ml 619 ml 1113 ml Output Urine Total 800 ml # Voids 2 2 # Bowel Movements 0 0 0 . Laboratory Tests Test 12/02/16 12/03/16 12:20 04:35 White Blood Count 11.0 TH/MM3 8.4 TH/MM3 Red Blood Count 4.33 MIL/MM3 4.43 MIL/MM3 Hemoglobin 11.9 GM/DL 12.0 GM/DL Hematocrit 35.4 % 36.5 % Mean Corpuscular Volume 81.7 FL 82.3 FL Mean Corpuscular Hemoglobin 27.6 PG 27.1 PG Mean Corpuscular Hemoglobin 33.7 % 32.9 % Concent Red Cell Distribution Width 15.2 % 15.2 % Platelet Count 152 TH/MM3 181 TH/MM3 Mean Platelet Volume 7.7 FL 7.8 FL Erythrocyte Sedimentation Rate 51 mm/hr Laboratory Tests Test 12/02/16 12/03/16 12:20 04:35 Sodium Level 137 MEQ/L 139 MEQ/L Potassium Level 3.7 MEQ/L 3.7 MEQ/L Chloride Level 105 MEQ/L 107 MEQ/L Carbon Dioxide Level 22.7 MEQ/L 23.0 MEQ/L Anion Gap 9 MEQ/L 9 MEQ/L Blood Urea Nitrogen 12 MG/DL 13 MG/DL Creatinine 1.14 MG/DL 0.94 MG/DL Estimat Glomerular Filtration 67 ML/MIN 84 ML/MIN Rate Random Glucose 114 MG/DL 153 MG/DL Calcium Level 7.3 MG/DL 7.7 MG/DL Protein Corrected Calcium 7.8 MG/DL Magnesium Level 1.8 MG/DL 2.0 MG/DL Total Creatine Kinase 5086 U/L 4054 U/L Creatine Kinase MB 8.2 NG/ML 10.7 NG/ML Creatine Kinase MB % 0.2 % 0.3 % Troponin I 0.12 NG/ML Total Protein 6.2 GM/DL Phosphorus Level 1.2 MG/DL C-Reactive Protein 18.20 MG/DL Microbiology Date/Time Procedure Status Source Growth 11/30/16 23:35 Aerobic Blood Culture - Preliminary Resulted Blood Peripheral NO GROWTH IN 3 DAYS 11/30/16 23:35 Anaerobic Blood Culture - Preliminary Resulted Blood Peripheral NO GROWTH IN 3 DAYS 11/30/16 23:40 Aerobic Blood Culture - Preliminary Resulted Blood Peripheral NO GROWTH IN 3 DAYS 11/30/16 23:40 Anaerobic Blood Culture - Preliminary Resulted Blood Peripheral NO GROWTH IN 3 DAYS 12/01/16 01:55 Gram Stain - Final Complete Sputum Expectorated Sputum 12/01/16 01:55 Sputum Culture - Final Complete Sputum Expectorated Sputum HEAVY GROWTH NORMAL RESPIRATORY KRISTIAN 12/01/16 02:55 Urine Culture - Final Complete Urine Catheterized Urine NO GROWTH IN 48 HOURS. Imaging Last Impressions Chest X-Ray 12/03/16 0600 Signed Impressions: Service Date/Time: November 08:04 - CONCLUSION: 1. Consolidative infiltrate in the right lung base consistent with the known pneumonia. 2. Small right effusion. Topher Aponte MD Chest CT 12/02/16 0000 Signed Impressions: Service Date/Time: Friday, December 02, 2016 21:11 - CONCLUSION: 1. Dense consolidation in the right upper lobe and right middle lobe with patchy airspace disease at the right lung base and small right effusion. Findings are most characteristic of bronchopneumonia with parapneumonic effusion. Omar Ramesh MD Physical Exam GENERAL: Obese male, awake and alert, looks dyspneic when he is talking, although she denies shortness of breath. SKIN: Cool and moist. No generalized rash or ecchymosis. HEENT: [place] conjunctivae, no petechia or hemorrhage. No scleral icterus. Moist oral mucosa, no thrush noted. NECK: Trachea midline. No JVD or lymphadenopathy. Supple, nontender, no meningeal signs. CARDIOVASCULAR: Regular rate and rhythm without murmurs, gallops, or rubs. Soft heart sounds. RESPIRATORY: Clear to auscultation. Breath sounds equal bilaterally. No wheezes , rales, or rhonchi. Decreased breath sounds at the bases. GASTROINTESTINAL: Abdomen soft, obese, non-tender, nondistended. Bowel sounds are present in normoactive. No guarding. MUSCULOSKELETAL: Extremities without clubbing, cyanosis, or edema. No joint effusion, or edema noted. No calf tenderness. IV sites look okay with no evidence of infection NEUROLOGICAL: Non-focaL PSYCH: Calm and cooperative LINE: PIV with no evidence of infection Assessment & Plan Remarks IMPRESSION Sepsis on admission due to pulmonary source R PNA, with small effusion - ?bacterial, ?atypical, ?viral Elevated CPK, ?due to cause of his PNA, viral Obesity, high risk for KERRY Looks dyspneic but denies SOB Back pain, likely more muscular RECOMMENDATION Follow C/S Urine for legionella and pneumo Ag Await Atypical serologies Resp viral panel Continue Cefepime Continue Levaquin Stop Zithromax Monitor temps Monitor progress Explained plan to patient and Evon Reno MD Dec 03, 2016 12:13
[2016-12-03] MEDS ORDERED: SODIUM PHOSPHATE INJ 30 MMOL in SODIUM CHLOR 0.9% 250 ML INJ 250 ML IV ONE (13:00)
[2016-12-03 16:00] VITALS: BP 146/81; PULSE 80; RESP 22; TEMP 98.1; O2SAT 96
[2016-12-03] MEDS: LEVOFLOXACIN 750 MG TAB PO SCH (17:45)
[2016-12-03 20:00] VITALS: BP 119/67; PULSE 82; RESP 22; TEMP 98.7; O2SAT 95
[2016-12-04] VITALS (7 sets, daily range): BP systolic 122–165; BP diastolic 72–89; PULSE 73–78; RESP 12–22; TEMP 97.4–98.2; O2SAT 92–97
[2016-12-04] MEDS: HEPARIN SODIUM - SQ 10,000 UNITS/ML VIAL SQ SCH ×2 (02:05→13:55)
[2016-12-04 05:22] LABS: HEMATOCRIT 35.1 % (39.0-51.0); MEAN CELL VOLUME 81.3 FL (80.0-100.0); MEAN CORPUSCULAR HEMOGLOBIN 27.3 PG (27.0-34.0); MEAN CORPUSCULAR HGB CONC 33.6 % (32.0-36.0); PLATELET COUNT 278 TH/MM3 (150-450); RED BLOOD COUNT 4.32 MIL/MM3 (4.50-5.90); REVIEW FLAG FINAL; WHITE BLOOD COUNT 7.2 TH/MM3 (4.0-11.0)
[2016-12-04] MEDS: LEVOTHYROXINE SODIUM 100 MCG TAB PO SCH (06:22)
[2016-12-04] MEDS: CEFEPIME INJ 2,000 MG in SODIUM CHLORIDE 0.9% INJ 100 ML IV SCH ×3 (06:39→20:31)
[2016-12-04] MEDS: guaiFENesin/DEXTROMETHORPHAN 200 MG/20 MG/10 ML CUP PO PRN ×3 (07:41→20:32)
[2016-12-04] MEDS: ASPIRIN EC 81 MG TABEC PO SCH (07:42)
[2016-12-04] MEDS: SODIUM CHLOR 0.9% 1000 ML INJ 1,000 ML IV SCH (07:42)
[2016-12-04] MEDS: SODIUM CHLORIDE 0.9% FLUSH 5 ML FLUSH IV FLUSH SCH ×2 (07:42→20:32)
--- NOTE | 2016-12-04 11:54 | HHI.PR ---
Subjective Remarks Patient is feeling better Sitting on bed Still having some cough dry Now urinalysis yellow. No more blood. No other associated symptoms No diarrhea No chest pain Review of system for 10 point system otherwise unremarkable Objective Objective Results - Vital Signs Date Time Temp Pulse Resp B/P Pulse Ox O2 Delivery O2 Flow Rate FiO2 12/04/16 11:08 97 12/04/16 08:00 97.4 77 14 137/86 95 12/04/16 00:00 97.4 78 20 122/76 94 12/03/16 20:00 98.7 82 22 119/67 95 12/03/16 16:00 98.1 80 22 146/81 96 12/03/16 12:03 93 Nasal Cannula 2.00 12/03/16 12:00 96.8 82 24 125/72 96 I/O 12/03/16 12/03/16 12/03/16 12/04/16 12/04/16 12/04/16 07:00 15:00 23:00 07:00 15:00 23:00 Intake Total 1473 ml 500 ml 830 ml 1022 ml Output Total 920 ml 450 ml Balance 1473 ml 500 ml -90 ml 572 ml Intake Oral 360 ml 500 ml 480 ml 240 ml IV Total 1113 ml 350 ml 782 ml Output Urine Total 920 ml 450 ml # Voids 2 3 # Bowel Movements 0 1 0 0 Result Diagram: 12/04/16 0401 12/03/16 0435 Other Results Laboratory Tests Test 12/04/16 12/04/16 04:01 04:51 White Blood Count 7.2 Red Blood Count 4.32 Hemoglobin 11.8 Hematocrit 35.1 Mean Corpuscular Volume 81.3 Mean Corpuscular Hemoglobin 27.3 Mean Corpuscular Hemoglobin 33.6 Concent Red Cell Distribution Width 15.0 Platelet Count 278 Mean Platelet Volume 7.7 Phosphorus Level 1.7 Magnesium Level 2.0 Date/Time Procedure Status Source Growth 12/04/16 01:43 Legionella Antigen - Final Complete Urine Clean Catch PRESUMPTIVE NEGATIVE FOR LEGIONELLA P... 12/04/16 01:43 Streptococcus pneumoniae Antigen (M - Final Complete Urine Clean Catch PRESUMPTIVE NEGATIVE FOR STREPTOCOCCU... 12/01/16 02:55 Urine Culture - Final Complete Urine Catheterized Urine NO GROWTH IN 48 HOURS. 12/01/16 01:55 Gram Stain - Final Complete Sputum Expectorated Sputum 12/01/16 01:55 Sputum Culture - Final Complete Sputum Expectorated Sputum HEAVY GROWTH NORMAL RESPIRATORY KRISTIAN 11/30/16 23:40 Aerobic Blood Culture - Preliminary Resulted Blood Peripheral NO GROWTH IN 4 DAYS 11/30/16 23:40 Anaerobic Blood Culture - Preliminary Resulted Blood Peripheral NO GROWTH IN 4 DAYS 11/30/16 09:30 Influenza Types A,B Antigen (MARIIA) - Final Complete Nasal Aspirate NEGATIVE FOR FLU A AND B ANTIGEN.... Physical Exam Physical Exam Vital Sign: Reviewed General: This was a 51-year-old male resting comfortably in bed. He is in no acute distress. HEENT: Mucous membranes are moist. There is no jaundice. Neck: Supple. No lymphadenopathy no increased JVD Cardiovascular System: Regular rate and rhythm. Respiratory System: Coarse bibasilar breath sounds. With occasional rhonchi. Gastrointestinal System: Morbid obese. No tenderness, guarding or rebound. System: No suprapubic tenderness, no CVA tenderness. Musculoskeletal System: No edema. Bartolome's negative. Distal pulses are palpable. Neurological Exam: The patient is awake, alert, oriented x 4. Speech is clear and fluent. He is moving all extremities freely. A/P Assessment and Plan 1. Bibasilar pneumonia. 2. Sepsis on admission. 3. Thrombocytopenia. 4. Acute kidney injury. 5. Hyponatremia. 6. Rhabdomyolysis. 7. Elevated troponin. 8. Elevated liver enzymes. 9. Morbid obesity. DISCUSSION monitored on telemetry. On cefepime and Levaquin ID input appreciated Resolved fever Continue cooling blanket on as-needed basis Discussed IV fluids as blood pressure is stable Reviewed labs Stable H&H Increase sedimentation rate Low phosphorous will replace Increased CRP Urine culture shows no growth 48 hours Sputum culture showing heavy growth normal respiratory Kristian Continue heparin for DVT prophylaxis Will add Protonix for GI prophylaxis Slight increase troponin no chest pain or associated symptoms likely secondary to pneumonia and sepsis. C. difficile negative continue Imodium on when necessary basis Zofran when necessary basis for nausea and vomiting incentive spirometry encouraged Discussed with RN Discussed with patient and at bedside in detail. Counseled about losing weight Marybeth Marin MD Dec 04, 2016 11:53
[2016-12-04] MEDS ORDERED: SODIUM PHOSPHATE INJ 30 MMOL in SODIUM CHLOR 0.9% 250 ML INJ 250 ML IV ONE (13:00)
--- NOTE | 2016-12-04 15:08 | HHI.IDPN ---
Subjective Subjective Remarks Notes reviewed D/W RN Spoke with Has been afebrile Coughing less today On RA Not bringing up a lot of phlegm CT of chest with multilobar R PNA and small R effusion CXR read as stable, but R base looks worse C/S reviewed Antibiotics Cefepime Levaquin Lines PIV Past Medical History Hypothyroidism Obesity Allergies: Uncoded Allergies: PRESERVATIVE IN LIDOCAINE (Allergy, Severe, HIVES, 12/23/08) Objective . Vital Signs Date Time Temp Pulse Resp B/P Pulse Ox O2 Delivery O2 Flow Rate FiO2 12/04/16 12:00 97.9 76 18 136/72 92 12/04/16 11:08 97 12/04/16 08:00 97.4 77 14 137/86 95 12/04/16 00:00 97.4 78 20 122/76 94 12/03/16 20:00 98.7 82 22 119/67 95 12/03/16 16:00 98.1 80 22 146/81 96 12/03/16 12/03/16 12/04/16 15:00 23:00 07:00 Intake Total 500 ml 830 ml 1022 ml Output Total 920 ml 450 ml Balance 500 ml -90 ml 572 ml Intake Oral 500 ml 480 ml 240 ml IV Total 350 ml 782 ml Output Urine Total 920 ml 450 ml # Voids 3 # Bowel Movements 1 0 0 . Laboratory Tests Test 12/03/16 12/04/16 04:35 04:01 White Blood Count 8.4 TH/MM3 7.2 TH/MM3 Red Blood Count 4.43 MIL/MM3 4.32 MIL/MM3 Hemoglobin 12.0 GM/DL 11.8 GM/DL Hematocrit 36.5 % 35.1 % Mean Corpuscular Volume 82.3 FL 81.3 FL Mean Corpuscular Hemoglobin 27.1 PG 27.3 PG Mean Corpuscular Hemoglobin 32.9 % 33.6 % Concent Red Cell Distribution Width 15.2 % 15.0 % Platelet Count 181 TH/MM3 278 TH/MM3 Mean Platelet Volume 7.8 FL 7.7 FL Erythrocyte Sedimentation Rate 51 mm/hr Laboratory Tests Test 12/03/16 12/04/16 04:35 04:51 Sodium Level 139 MEQ/L Potassium Level 3.7 MEQ/L Chloride Level 107 MEQ/L Carbon Dioxide Level 23.0 MEQ/L Anion Gap 9 MEQ/L Blood Urea Nitrogen 13 MG/DL Creatinine 0.94 MG/DL Estimat Glomerular Filtration 84 ML/MIN Rate Random Glucose 153 MG/DL Calcium Level 7.7 MG/DL Phosphorus Level 1.2 MG/DL 1.7 MG/DL Magnesium Level 2.0 MG/DL 2.0 MG/DL Total Creatine Kinase 4054 U/L Creatine Kinase MB 10.7 NG/ML Creatine Kinase MB % 0.3 % C-Reactive Protein 18.20 MG/DL Microbiology Date/Time Procedure Status Source Growth 12/04/16 01:43 Legionella Antigen - Final Complete Urine Clean Catch PRESUMPTIVE NEGATIVE FOR LEGIONELLA P... 12/04/16 01:43 Streptococcus pneumoniae Antigen (M - Final Complete Urine Clean Catch PRESUMPTIVE NEGATIVE FOR STREPTOCOCCU... Imaging Last Impressions Chest X-Ray 12/03/16 0600 Signed Impressions: Service Date/Time: November 08:04 - CONCLUSION: 1. Consolidative infiltrate in the right lung base consistent with the known pneumonia. 2. Small right effusion. Topher Aponte MD Chest CT 12/02/16 0000 Signed Impressions: Service Date/Time: Friday, December 02, 2016 21:11 - CONCLUSION: 1. Dense consolidation in the right upper lobe and right middle lobe with patchy airspace disease at the right lung base and small right effusion. Findings are most characteristic of bronchopneumonia with parapneumonic effusion. Omar Ramesh MD Physical Exam GENERAL: Obese male, looks comfortable at rest SKIN: Cool and moist. No generalized rash HEENT: [place] conjunctivae. No scleral icterus. Moist oral mucosa, no thrush noted. NECK: Supple, nontender, no meningeal signs. CARDIOVASCULAR: Regular rate and rhythm without murmurs, gallops, or rubs. Soft heart sounds. RESPIRATORY: Decreased breath sounds at the bases. GASTROINTESTINAL: Abdomen soft, obese, non-tender, nondistended. Bowel sounds are present in normoactive. No guarding. MUSCULOSKELETAL: Extremities without clubbing, cyanosis, or edema. No joint effusion, or edema noted. No calf tenderness. IV sites look okay with no evidence of infection NEUROLOGICAL: Non-focaL PSYCH: Calm and cooperative LINE: PIV with no evidence of infection Assessment & Plan Remarks IMPRESSION Sepsis on admission due to pulmonary source R PNA, with small effusion - ?bacterial, ?atypical, ?viral Elevated CPK, ?due to cause of his PNA, viral Obesity, high risk for KERRY Back pain, likely more muscular RECOMMENDATION Stop Cefepime after tomorrow morning's dose Continue Levaquin - give until Dec 12 Monitor progress Clinically doing well from ID standpoint If stable, should be able to D/C this Explained plan to D/W Evon Gonzales MD Dec 04, 2016 15:08
[2016-12-04] MEDS: LEVOFLOXACIN 750 MG TAB PO SCH (16:34)
[2016-12-05] VITALS: BP 148/90; PULSE 72; RESP 20; TEMP 98; O2SAT 97
[2016-12-05] MEDS: HEPARIN SODIUM - SQ 10,000 UNITS/ML VIAL SQ SCH ×2 (02:00→13:45)
[2016-12-05] MEDS: LEVOTHYROXINE SODIUM 100 MCG TAB PO SCH (04:34)
[2016-12-05] MEDS: CEFEPIME INJ 2,000 MG in SODIUM CHLORIDE 0.9% INJ 100 ML IV SCH (04:34)
[2016-12-05] MEDS: guaiFENesin/DEXTROMETHORPHAN 200 MG/20 MG/10 ML CUP PO PRN (04:37)
[2016-12-05 05:06] LABS: MEAN CELL VOLUME 81.3 FL (80.0-100.0); MEAN CORPUSCULAR HEMOGLOBIN 27.2 PG (27.0-34.0); MEAN CORPUSCULAR HGB CONC 33.4 % (32.0-36.0); PLATELET COUNT 367 TH/MM3 (150-450); RED BLOOD COUNT 4.18 MIL/MM3 (4.50-5.90); RED CELL DISTRIBUTION WIDTH 15.2 % (11.6-17.2); REVIEW FLAG FINAL; WHITE BLOOD COUNT 6.7 TH/MM3 (4.0-11.0)
[2016-12-05 05:28] LABS: BICARBONATE 25.1 MEQ/L (21.0-32.0); POTASSIUM 3.4 MEQ/L (3.5-5.1)
[2016-12-05] MEDS: ASPIRIN EC 81 MG TABEC PO SCH (07:50)
[2016-12-05] MEDS: SODIUM CHLORIDE 0.9% FLUSH 5 ML FLUSH IV FLUSH SCH (07:53)
[2016-12-05 08:00] VITALS: BP 160/99; PULSE 76; RESP 18; TEMP 98.4; O2SAT 93
--- NOTE | 2016-12-05 09:39 | HHI.PR ---
Subjective Remarks Patient is feeling better Sitting on a recliner had good night sleep Still having some cough dry Now urinalysis yellow. No more blood. No other associated symptoms No diarrhea No chest pain Review of system for 12 point system otherwise unremarkable Objective Objective Results - Vital Signs Date Time Temp Pulse Resp B/P Pulse Ox O2 Delivery O2 Flow Rate FiO2 12/05/16 08:00 98.4 76 18 160/99 93 12/05/16 00:00 98.0 72 20 148/90 97 12/04/16 20:00 98.2 75 22 153/89 96 12/04/16 17:42 92 21 12/04/16 16:00 97.5 73 12 165/87 95 12/04/16 12:00 97.9 76 18 136/72 92 12/04/16 11:08 97 I/O 12/04/16 12/04/16 12/04/16 12/05/16 12/05/16 12/05/16 07:00 15:00 23:00 07:00 15:00 23:00 Intake Total 1022 ml 1068 ml 730 ml 440 ml 522 ml Output Total 450 ml 750 ml Balance 572 ml 1068 ml -20 ml 440 ml 522 ml Intake Oral 240 ml 800 ml 480 ml 440 ml IV Total 782 ml 268 ml 250 ml 522 ml Output Urine Total 450 ml 750 ml # Voids 7 3 # Bowel Movements 0 1 0 0 Result Diagram: 12/05/16 0450 12/05/16 0450 Other Results Laboratory Tests Test 12/05/16 04:50 White Blood Count 6.7 Red Blood Count 4.18 Hemoglobin 11.4 Hematocrit 34.0 Mean Corpuscular Volume 81.3 Mean Corpuscular Hemoglobin 27.2 Mean Corpuscular Hemoglobin 33.4 Concent Red Cell Distribution Width 15.2 Platelet Count 367 Mean Platelet Volume 7.2 Sodium Level 144 Potassium Level 3.4 Chloride Level 109 Carbon Dioxide Level 25.1 Anion Gap 10 Blood Urea Nitrogen 7 Creatinine 0.77 Estimat Glomerular Filtration 106 Rate Random Glucose 104 Calcium Level 7.9 Phosphorus Level 2.1 Date/Time Procedure Status Source Growth 12/04/16 01:43 Legionella Antigen - Final Complete Urine Clean Catch PRESUMPTIVE NEGATIVE FOR LEGIONELLA P... 12/04/16 01:43 Streptococcus pneumoniae Antigen (M - Final Complete Urine Clean Catch PRESUMPTIVE NEGATIVE FOR STREPTOCOCCU... 2/7/17 02:55 Urine Culture - Final Complete Urine Catheterized Urine NO GROWTH IN 48 HOURS. 12/01/16 01:55 Gram Stain - Final Complete Sputum Expectorated Sputum 12/01/16 01:55 Sputum Culture - Final Complete Sputum Expectorated Sputum HEAVY GROWTH NORMAL RESPIRATORY CARMELITA 11/30/16 23:40 Aerobic Blood Culture - Preliminary Resulted Blood Peripheral NO GROWTH IN 4 DAYS 11/30/16 23:40 Anaerobic Blood Culture - Preliminary Resulted Blood Peripheral NO GROWTH IN 4 DAYS Physical Exam Physical Exam Vital Sign: Reviewed General: This was a 51-year-old male resting comfortably in bed. He is in no acute distress. HEENT: Mucous membranes are moist. There is no jaundice. Neck: Supple. No lymphadenopathy no increased JVD Cardiovascular System: Regular rate and rhythm. Respiratory System: Good air entry. With occasional rhonchi bibasally. Gastrointestinal System: Morbid obese. No tenderness, guarding or rebound. System: No suprapubic tenderness, no CVA tenderness. Musculoskeletal System: No edema. Bartolome's negative. Distal pulses are palpable. Neurological Exam: The patient is awake, alert, oriented x 4. Speech is clear and fluent. He is moving all extremities freely. A/P Assessment and Plan 1. Bibasilar pneumonia. 2. Sepsis on admission. 3. Thrombocytopenia. 4. Acute kidney injury. 5. Hyponatremia. 6. Rhabdomyolysis. 7. Elevated troponin. 8. Elevated liver enzymes. 9. Morbid obesity. DISCUSSION monitored on telemetry. On cefepime and Levaquin ID input appreciated Resolved fever Off of IV fluids blood pressure is stable Reviewed labs Stable H&H Low phosphorous will replace Low potassium will replace Increased CRP Urine culture shows no growth 48 hours Sputum culture showing heavy growth normal respiratory Carmelita heparin for DVT prophylaxis Slight increase troponin no chest pain or associated symptoms likely secondary to pneumonia and sepsis. C. difficile negative continue Imodium on when necessary basis Zofran when necessary basis for nausea and vomiting incentive spirometry encouraged Discussed with RN Discussed with patient and at bedside in detail. Counseled again about losing weight. Plan to discharge him home to be followed by his primary care doctor as outpatient Marybeth Marin MD Dec 05, 2016 09:39
[2016-12-05] MEDS ORDERED: ROBIDM5S PO (09:40)
[2016-12-05] MEDS ORDERED: LEVA750T PO (09:40)
--- NOTE | 2016-12-05 09:44 | HHI.DS ---
Discharge Summary Admission Date Dec 01, 2016 at 01:02 Admitting Diagnosis Bibasilar Pneumonia, Rhabdomyolysis, ARF (1) Acute renal insufficiency Diagnosis: Principal (2) Rhabdomyolysis Diagnosis: Principal (3) Pneumonia Diagnosis: Principal (4) Sepsis Diagnosis: Principal Brief History Patient was admitted because of the cough and fever. On admission patient was in sepsis with pneumonia. She was put on appropriate antibiotics. Patient will continue to have a fever. ID consultation was called in. After adjustment of antibiotic patient's fever was resolved. Patient was improving slowly. Now as per ID can be discharged on by mouth antibiotics. As patient is overall a stable and good condition plan to discharge him home on by mouth antibiotic. Advised to lose some weight. Patient understood all. During his admission patient has rhabdomyolysis it is better. CBC/BMP: 12/05/16 0450 12/05/16 0450 Significant Findings Laboratory Tests Test 12/02/16 12/03/16 12/04/16 12/04/16 12:20 04:35 04:01 04:51 Red Blood Count 4.33 MIL/MM3 4.43 MIL/MM3 4.32 MIL/MM3 (4.50-5.90) (4.50-5.90) (4.50-5.90) Hemoglobin 11.9 GM/DL 12.0 GM/DL 11.8 GM/DL (13.0-17.0) (13.0-17.0) (13.0-17.0) Hematocrit 35.4 % 36.5 % 35.1 % (39.0-51.0) (39.0-51.0) (39.0-51.0) Estimat Glomerular Filtration 67 ML/MIN (>89) 84 ML/MIN (>89) Rate Random Glucose 114 MG/DL 153 MG/DL (74-106) (74-106) Calcium Level 7.3 MG/DL 7.7 MG/DL (8.5-10.1) (8.5-10.1) Protein Corrected Calcium 7.8 MG/DL (8.5-10.1) Total Creatine Kinase 5086 U/L 4054 U/L (39-308) (39-308) Creatine Kinase MB 8.2 NG/ML 10.7 NG/ML (0.5-3.6) (0.5-3.6) Troponin I 0.12 NG/ML (0.02-0.05) Total Protein 6.2 GM/DL (6.4-8.2) Erythrocyte Sedimentation Rate 51 mm/hr (0-20) Phosphorus Level 1.2 MG/DL 1.7 MG/DL (2.5-4.9) (2.5-4.9) C-Reactive Protein 18.20 MG/DL (0.00-0.30) Test 12/05/16 04:50 Red Blood Count 4.18 MIL/MM3 (4.50-5.90) Hemoglobin 11.4 GM/DL (13.0-17.0) Hematocrit 34.0 % (39.0-51.0) Potassium Level 3.4 MEQ/L (3.5-5.1) Chloride Level 109 MEQ/L (98-107) Calcium Level 7.9 MG/DL (8.5-10.1) Phosphorus Level 2.1 MG/DL (2.5-4.9) Pt Condition on Discharge: Good Discharge Disposition: Discharge Home Discharge Instructions DIET: Follow Instructions for: Heart Healthy Diet Activities you can perform: Weight Bearing as Ghassan Follow up Referrals: PCP Follow-up - 3-5 Days New Medications: Guaifenesin/Dextromethorphan Liq (Guaifenesin-Dm Liq) 100-10 Mg/5 Ml Syrp 10 ML PO Q4H PRN COUGH #120 ML Levofloxacin (Levaquin) 750 Mg Tab 750 MG PO Q24H pneumonia #7 TAB Continued Medications: Levothyroxine (Synthroid) 100 Mcg Tab 100 MCG PO DAILY Thyroid #30 Ref 0 TAB Marybeth Marin MD Dec 05, 2016 09:44
[2016-12-05] MEDS ORDERED: POTASSIUM CHLORIDE 20 MEQ CONTROLLED RELEASE TAB PO ONE (09:45)
[2016-12-05] MEDS ORDERED: SODIUM PHOSPHATE INJ 30 MMOL in SODIUM CHLOR 0.9% 250 ML INJ 250 ML IV ONE (11:00)
[2016-12-05 12:00] VITALS: BP 145/82; PULSE 63; RESP 16; TEMP 98.4; O2SAT 95
[2016-12-05 23:57] LABS: C PNEUMO IGA <1:16 (()); C PNEUMO IGG <1:64 (()); C PNEUMO IGM <1:10 (())
== END 2016-12-05 15:30 | disposition home or self-care (01) | DRG 871 ==
LOC: NEPC 22:32 → NEDA 12-01 01:02 → NEDH 12-01 05:02 → N07A 12-01 15:24
PROVIDERS: ADMIT Specialist; ATTEND Specialist
DX: A41.9 Sepsis, unspecified organism (principal); J18.9 Pneumonia, unspecified organism; N17.9 Acute kidney failure, unspecified; M62.82 Rhabdomyolysis; K52.1 Toxic gastroenteritis and colitis; D69.6 Thrombocytopenia, unspecified; E66.01 Morbid (severe) obesity due to excess calories; E87.1 Hypo-osmolality and hyponatremia; E03.9 Hypothyroidism, unspecified; I71.4 Abdominal aortic aneurysm, without rupture; R31.9 Hematuria, unspecified; R35.0 Frequency of micturition; R74.8 Abnormal levels of other serum enzymes; T36.0X5A Adverse effect of penicillins, initial encounter; Y92.009 Unspecified place in unspecified non-institutional (private) residence as the place of occurrence of the external cause; M54.9 Dorsalgia, unspecified
CPT/HCPCS: 71010; 71020; 71260; 80048; 80053; 81001; 82550; 82552; 83605; 83690; 83735; 83880; 84100; 84155; 84443; 84484; 85025; 85027; 85610; 85652; 85730; 86140; 86631; 86632; 86738; 87040; 87070; 87086; 87205; 87449; 87493; 87804; 93005; 94150; 94664; 96365; J0456; J0692; J0696; J1644; J2405; J2543; J3370; J7030; J7050; Q9967